=== PATIENT | female | born 1935 | race Caucasian/White ===

== ENCOUNTER 2020-05-06 20:50 | Inpatient (IN) | payer MEDICARE, OTHER ==
[~2020-05-06] VITALS: Ht 157.5 cm; Wt 74.8 kg
[~2020-05-06 20:50] MED LIST: ALBU18HF2 IH; ASPI-1420 PO; BISA-79 PO; CLOP75TA15 PO; ERGO500014 PO; ESOM40CA PO; GLIP10TA11 PO; IBUP-1955 PO; METO25TA6 PO; MOME45CR3 TP; OLME1TAB22 PO; SITA1TAB6 PO; TOLT4CAP PO; TRAM50TA2 PO
[2020-05-07] VITALS (7 sets, daily range): BP systolic 122–194; BP diastolic 52–97
--- NOTE | 2020-05-07 | NUR ---
RN NOTES PT ARRIVED A DIRECT TRANSFER FROM [facility] PT ARRIVED VIA GURNEY ACCOMPANIED BY [employer] AND HER DAUGHTER IN LAW. PT ALERT ORIENTED X 2-3. NO PAIN OR DISCOMFORT VISIBLE OR REPORTED AT THIS TIME. NO RESPIRATORY DISTRESS NOTED OR REPORTED AT THIS TIME. PT ON ROOM AIR TOLERATING WELL. IV ACCESS ON THE RIGHT AC #18G SL NO REDNESS OR SWELLING NOTED AT IV SITE. ADMISSION SKIN PHOTOS AND ASSESSMENT AND PHOTOS UNABLE TO BE DONE. AT THIS TIME PT REFUSED X 3 RISK AND BENEFITS EXPLAINED X3. PT ORIENTED TO ROOM AND UNIT. PT CALL LIGHT WITHIN REACH SAFETY PRECAUTIONS FOLLOWED. WILL CONTINUE TO MONITOR.
[2020-05-07] MEDS ORDERED: ONDANSETRON HCL/PF 4 MG/2 ML VIAL IVP PRN (02:00)
[2020-05-07] MEDS ORDERED: TRAMADOL HCL 50 MG TABLET PO PRN (02:00)
[2020-05-07] MEDS ORDERED: ACETAMINOPHEN 325 MG TABLET PO PRN (02:00)
[2020-05-07] MEDS ORDERED: IBUPROFEN 600 MG TABLET PO PRN (02:00)
[2020-05-07] MEDS ORDERED: ENOXAPARIN SODIUM 40 MG/0.4 ML DISP.SYRIN SQ SCH ×2 (02:00→21:00)
[2020-05-07] MEDS ORDERED: MAGNESIUM HYDROXIDE 30 ML UDC PO PRN (02:00)
[2020-05-07] MEDS ORDERED: Z GUARD REMEDY 2 OZ OINT TP PRN (02:00)
[2020-05-07] MEDS ORDERED: MAG HYDROX/AL HYDROX/SIMETH 30 ML UDC PO PRN (02:00)
[2020-05-07] MEDS ORDERED: ALBUTEROL FS 2.5 MG/3 ML VIAL.NEB NEB PRN (02:30)
[2020-05-07 05:56] LABS: BASOPHILS % (AUTO) 0.4 % (0.0-2.0); EOSINOPHILS % (AUTO) 0.9 % (0.0-6.0); HEMATOCRIT 41 % (33-45); HEMOGLOBIN 13.8 g/dL (11.5-14.8); LYMPHOCYTES # (AUTO) 2.5 /CMM (0.8-4.8); LYMPHOCYTES % (AUTO) 23.1 % (20.0-44.0); MEAN CORPUSCULAR HGB CONC 34 g/dl (31.0-36.0); MEAN CORPUSCULAR VOLUME 91 fL (82-100); MONOCYTES # (AUTO) 0.5 /CMM (0.1-1.30); MONOCYTES % (AUTO) 4.5 % (2.0-12.0); NEUTROPHILS # (AUTO) 7.8 /CMM (1.8-8.9); NEUTROPHILS % (AUTO) 71.1 % (43.0-81.0); PLATELET COUNT (AUTO) 299 /CMM (150-450); RED BLOOD CELL COUNT(AUTO) 4.51 MIL/uL (4.0-5.2)
[2020-05-07 06:26] LABS: CHOLESTEROL 179 mg/dL (<200); HDL CHOLESTEROL 46 mg/dL (40-60); LDL 117 mg/dL (0-99); THYROID STIMULATING HORMONE 0.275 uIU/mL (0.358-3.74); TRIGLYCERIDES 87 mg/dL (30-150)
[2020-05-07 06:50] LABS: CALCIUM, SERUM 9.6 mg/dL (8.5-10.1); CARBON DIOXIDE 27 mmol/L (21-32); CHLORIDE 103 mmol/L (98-107); CREATININE 1.2 mg/dL (0.6-1.3); GLUCOSE 143 mg/dL (74-106); SODIUM SERUM 142 mmol/L (136-145); UREA NITROGEN, BLOOD 27 mg/dL (7-18)
--- NOTE | 2020-05-07 06:56 | NUR ---
RN NOTES PT ALERT ORIENTED X 2-3. NO PAIN OR DISCOMFORT VISIBLE OR REPORTED AT THIS TIME. NO RESPIRATORY DISTRESS NOTED OR REPORTED AT THIS TIME. PT ON ROOM AIR TOLERATING WELL. IV ACCESS ON THE RIGHT AC #18G SL NO REDNESS OR SWELLING NOTED AT IV SITE. ADMISSION SKIN PHOTOS AND ASSESSMENT AND PHOTOS UNABLE TO BE DONE. AT THIS TIME PT REFUSED X 3 RISK AND BENEFITS EXPLAINED X3. PT ORIENTED TO ROOM AND UNIT. PT CALL LIGHT WITHIN REACH SAFETY PRECAUTIONS FOLLOWED. UNABLE TO COLLECT URINE. WILL ENDORSE CARE TO DAY SHIFT.
[2020-05-07 06:59] LABS: ALANINE AMINOTRANSFERASE 13 U/L (12-78); ALBUMIN 3.1 g/dL (3.4-5.0); ALKALINE PHOSPHATASE 64 U/L (46-116); ASPARTATE AMINOTRANSFERASE 18 U/L (15-37); BILIRUBIN,TOTAL 0.5 mg/dL (0.2-1.0); MAGNESIUM 1.5 mg/dL (1.8-2.4); PHOSPHORUS 2.8 mg/dL (2.5-4.9); TOTAL PROTEIN, SERUM 6.8 g/dL (6.4-8.2)
[2020-05-07] MEDS ORDERED: PANTOPRAZOLE 40 MG TABLET.DR PO SCH (07:30)
[2020-05-07] MEDS: glipiZIDE 10 MG TABLET PO SCH (07:33)
[2020-05-07] MEDS: PANTOPRAZOLE 40 MG TABLET.DR PO SCH (07:33)
--- NOTE | 2020-05-07 07:40 | NUR ---
TELE/RN OPENING NOTES RECEIVED PATIENT ON BED SLEEPING EASILY AROUSABLE BY NAME AND LIGHT TOUCH. ALERT AND ORIENTED X 2-3. PATIENT IN NO APPARENT RESPIRATORY DISTRESS NOTED. NO COMPLAINED OF PAIN NOTED AT THIS TIME. TELE MONITOR READING SINUS RHYTHM 75 BPM. WILL CONTINUE TO MONITOR.
--- NOTE | 2020-05-07 08:45 | NUR ---
TELE/RN NOTES PATIENT REFUSED TO TAKE MORNING MEDICATIONS. PATIENT IS WALLIS[place] SPEAKING , CALLED MICH (DAUGHTER) [phone] TO TALK TO THE PATIENT AND PATIENT IS STILL REFUSING. WILL CONTINUE TO MONITOR.
[2020-05-07] MEDS ORDERED: ERGOCALCIFEROL (VITAMIN D 2) 50,000 UNIT CAPSULE PO SCH (09:00)
[2020-05-07] MEDS ORDERED: Medication Not On Formulary EA (Sitagliptin Phos/Metformin Hcl (Janumet 50-1,000 Mg Tabl PO SCH (09:00)
[2020-05-07] MEDS ORDERED: TRAMADOL HCL 50 MG TABLET PO SCH (09:00)
[2020-05-07] MEDS: METFORMIN 500 MG TABLET PO SCH ×2 (09:30→16:04)
[2020-05-07] MEDS ORDERED: IV NS 0.9% 1,000 ML IV PRN (09:30)
[2020-05-07] MEDS: LOSARTAN/HCTZ 50-12.5MG/ 1 EA TABLET PO SCH (09:31)
[2020-05-07] MEDS: BISACODYL (5 MG) 5 MG TABLET.DR PO SCH (09:31)
[2020-05-07] MEDS: ASPIRIN EC 81 MG TABLET.DR PO SCH (09:31)
[2020-05-07] MEDS: METOPROLOL TARTRATE 25 MG TABLET PO SCH ×2 (09:32→16:04)
[2020-05-07] MEDS: LINAGLIPTIN 5 MG TABLET PO SCH (09:32)
[2020-05-07] MEDS: CLOPIDOGREL BISULFATE 75 MG TABLET PO SCH (09:32)
[2020-05-07] MEDS: ATORVASTATIN 10 MG TABLET PO SCH (09:34)
--- NOTE | 2020-05-07 09:34 | NUR ---
TELE/RN NOTES MORNING MEDICATIONS WAS GIVEN BY MICH ( DAUGHTER IN LAW).
--- NOTE | 2020-05-07 10:00 | NUR ---
TELE/RN NOTES DO NOT INSERT EATON CATHETER OR STRAIGHT CATHETER PER FAMILIES REQUEST.
[2020-05-07] MEDS: Magnesium 1GM/D5W 100ML PREMIX 100 ML IV SCH ×2 (10:36→15:18)
[2020-05-07] MEDS: MOMETASONE FUROATE 0.1% CREAM 15 GM TUBE TP SCH ×2 (15:20→17:47)
--- NOTE | 2020-05-07 18:35 | NUR ---
TELE/RN CLOSING NOTES PATIENT IS ON BED AWAKE ALERT AND ORIENTED X 2-3. PATIENT IS ON ROOM AIR SATURATION 96 % PATIENT IN NO APPARENT RESPIRATORY DISTRESS NOTED. NO COMPLAINED OF PAIN NOTED AT THIS TIME. TELE MONITOR READING SINUS RHYTHM SINUS RHYTHM -SINUS KELSIE 57 BPM. SEEN AND EXAMINED BY MD WITH ORDERS MADE AND CARRIED OUT. ALL DUE MEDICATIONS WAS GIVEN. IV ACCESS AT RIGHT AC # 24 G AND LEFT FOREARM # 20 G WITH IV FLUID OF NS 1L AT 100ML/HR ON AND INFUSING WELL. SAFETY PRECAUTIONS WAS IN PLACED. BED IN LOWEST POSITION AND LOCKED. SIDERAILS LOCKED X2. CALL LIGHT WITHIN REACH. PATIENT CAN EAT THE COOKIE FROM HOME AND ITS OK IF CANNOT COLLECT URINE SPECIMENS PER MICH UNION REPRESENTATIVE. PLEASE CALL MICH (DAUGHTER IN LAW) LET HER KNOW FOR THE DISCHARGE OF THE PATIENT. WILL ENDORSED TO MANAGER CAMP FOR FABIOLA.
--- NOTE | 2020-05-07 19:20 | NUR ---
RN NOTES PATIENT IS ON BED AWAKE ALERT AND ORIENTED X 2-3. PATIENT IS ON ROOM AIR SATURATION 96 % PATIENT IN NO APPARENT RESPIRATORY DISTRESS NOTED. NO COMPLAINED OF PAIN NOTED AT THIS TIME. IV ACCESS AT RIGHT AC # 24 G AND LEFT FOREARM # 20 G WITH IV FLUID OF NS AT 100ML/HR ON AND INFUSING WELL. SAFETY PRECAUTIONS WAS IN PLACED. BED IN LOWEST POSITION AND LOCKED. SIDE RAILS LOCKED X2. CALL LIGHT WITHIN REACH. WILL CONTINUE TO MONITOR.
[2020-05-07] MEDS ORDERED: TOLTERODINE 2 MG CAP.SR PO SCH (22:00)
[2020-05-08] VITALS: BP 145/72
[2020-05-08 04:00] VITALS: BP 151/90
--- NOTE | 2020-05-08 06:46 | NUR ---
RN NOTES PATIENT IS ON BED AWAKE ALERT AND ORIENTED X 2-3. PATIENT IS ON ROOM AIR SATURATION 96 % PATIENT IN NO APPARENT RESPIRATORY DISTRESS NOTED. NO COMPLAINED OF PAIN NOTED AT THIS TIME. IV ACCESS AT RIGHT AC # 24 G AND LEFT FOREARM # 20 G WITH IV FLUID OF NS AT 100ML/HR ON AND INFUSING WELL. SAFETY PRECAUTIONS WAS IN PLACED. BED IN LOWEST POSITION AND LOCKED. SIDE RAILS LOCKED X2. CALL LIGHT WITHIN REACH. WILL ENDORSE CARE TO DAY SHIFT.
[2020-05-08 08:00] VITALS: BP 154/67
[2020-05-08] MEDS: BISACODYL (5 MG) 5 MG TABLET.DR PO SCH (08:48)
[2020-05-08] MEDS: METOPROLOL TARTRATE 25 MG TABLET PO SCH ×2 (08:48→17:00)
[2020-05-08] MEDS: LINAGLIPTIN 5 MG TABLET PO SCH (08:48)
[2020-05-08] MEDS: ATORVASTATIN 10 MG TABLET PO SCH (08:48)
[2020-05-08] MEDS: CLOPIDOGREL BISULFATE 75 MG TABLET PO SCH (08:48)
[2020-05-08] MEDS: LOSARTAN/HCTZ 50-12.5MG/ 1 EA TABLET PO SCH (08:48)
[2020-05-08] MEDS: METFORMIN 500 MG TABLET PO SCH ×2 (08:48→17:00)
[2020-05-08] MEDS: ASPIRIN EC 81 MG TABLET.DR PO SCH (08:48)
[2020-05-08] MEDS: PANTOPRAZOLE 40 MG TABLET.DR PO SCH (08:55)
[2020-05-08] MEDS: MOMETASONE FUROATE 0.1% CREAM 15 GM TUBE TP SCH ×2 (08:56→17:00)
[2020-05-08] MEDS: glipiZIDE 10 MG TABLET PO SCH (08:56)
[2020-05-08 12:00] VITALS: BP 134/61
--- NOTE | 2020-05-08 12:03 | NUR ---
COTTON BAG SEWER OPENING NOTE PATIENT IS IN BED RESTING. PATIENT IS IN NO ACUTE DISTRESS. PATIENT IS ON ROOM AIR, TOLERATING WELL. NO SOB NOTED. PATIENT IS ON FLUID RESTRICTION 1.5L PATIENT IS ON TELE MONITOR READING PVC SR. SAFETY PRECAUTIONS ARE IN PLACE, BED IN THE LOWEST POSITION, WITH SIDE RAILS ON, CALL LIGHT WITHIN REACH. WILL CONTINUE TO MONITOR PATIENT CLOSELY THROUGH OUT THE SHIFT.
[2020-05-08] MEDS ORDERED: LINA5TAB PO (15:10)
[2020-05-08] MEDS ORDERED: ATOR10TA PO (15:10)
[2020-05-08 16:00] VITALS: BP 98/46
[2020-05-08 17:00] VITALS: BP 98/50
--- NOTE | 2020-05-08 18:07 | NUR ---
HEAD SILVERMAN NOTE PATIENT IS REFUSING ALL THE MEDICATIONS AND LABS, PATIENT IS NON COMPLIANT AND COMBATIVE, SCRATCHING, BITING, HITTING. EDUCATED RISK VS BENEFITS.
--- NOTE | 2020-05-08 19:00 | NUR ---
COILER OPERATORTECHNICAL MANAGER NOTE PATIENT IS IN NO ACUTE DISTRESS. PATIENT IS MEDICALLY STABLE TO BE DISCHARGED. PATIENT IS ON ROOM AIR WITH NO SOB NOTED. PATIENTS NEEDS WERE ADDRESSED THOUGH OUT THE STAY. EDUCATION WAS GIVEN TO PATIENTS DAUGHTER/CAREGIVER. PATIENTS DAUGHTER/CAREGIVER VERBALIZED UNDERSTANDING. SKIN ASSESSED, PICTURE TAKEN AND PLACED IN THE CHART. PATIENTS IV AND ID BAND TAKEN OUT. PATIENT WAS PICKED UP BY HER DAUGHTER VIA WHEELCHAIR. MD IS AWARE OF DISCHARGE.
== END 2020-05-08 18:30 | disposition home health service (06) | DRG 640 ==
LOC: TELE 23:59
PROVIDERS: ADMIT Nurse Practitioner Acute Care; ATTEND Nurse Practitioner Acute Care
DX: E86.0 Dehydration (principal); N17.0 Acute kidney failure with tubular necrosis; I25.10 Atherosclerotic heart disease of native coronary artery without angina pectoris; E78.5 Hyperlipidemia, unspecified; E11.9 Type 2 diabetes mellitus without complications; F03.90 Unspecified dementia, unspecified severity, without behavioral disturbance, psychotic disturbance, mood disturbance, and anxiety; I25.2 Old myocardial infarction; I10 Essential (primary) hypertension; Z79.84 Long term (current) use of oral hypoglycemic drugs; Z86.73 Personal history of transient ischemic attack (TIA), and cerebral infarction without residual deficits; I70.0 Atherosclerosis of aorta; Z79.82 Long term (current) use of aspirin; Z79.51 Long term (current) use of inhaled steroids; K80.20 Calculus of gallbladder without cholecystitis without obstruction
CPT/HCPCS: 36415; 71045-TC; 80053-TC; 80061-TC; 83735-TC; 84100-TC; 84443-TC; 84484-TC; 85025-TC; 85610-TC; 85730-TC; 87081-TC; 93307-TC; 93880-TC; 97112-TC; 97530-TC; G0378; J1650; J3475